=== PATIENT | male | born 1975 | race Caucasian/White ===

== ENCOUNTER 2020-02-09 09:40 | Outpatient (CLI) | payer OTHER ==
--- NOTE | 2020-02-09 10:08 | XRAY Report ---
PROCEDURE: Abdomen 1 View X-Ray INDICATIONS: ABD PAIN TECHNIQUE: 1 view of the abdomen were acquired. COMPARISON: None. FINDINGS: Surgical changes and devices: None. Bowel: No pneumoperitoneum. The bowel gas pattern is normal. Soft tissues: No masses; visualized solid organ contours appear normal in size. No suspicious abdom inal calcifications. A round calcification in the left pelvis is most likely a phlebolith. Bones: Small ossification adjacent to the right acetabulum may be related to prior trauma or degenera tive changes. IMPRESSION: No definite renal or ureteral calculus is seen radiographically. No signs of bowel obstr uction. Reviewed by: Gigi Vidal MD on 02/09/2020 10:06 AM PDT Approved by: Gigi Vidal MD on 02/09/2020 10:06 AM PDT Station ID: [id number]
== END 2020-02-09 09:41 | disposition home or self-care (01) ==
LOC: DI.S 09:40
PROVIDERS: ATTEND Physician Assistant Medical
DX: R10.9 Unspecified abdominal pain (principal); R31.9 Hematuria, unspecified
CPT/HCPCS: 36415; 74018; 80053; 84550; 85025; 87086

== ENCOUNTER 2021-03-24 | Observation (INO) | payer OTHER ==
--- NOTE | 2021-03-24 00:20 | ED Physician Documentation ---
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 No: Fever, Hematemesis, Constipation, Chest pain Similar symptoms before: Has not had sx before Recently seen: Not recently seen Review of Systems Constitutional: reports: Reviewed and negative Cardiac: reports: Reviewed and negative Respiratory: reports: Reviewed and negative GI: reports: Abdominal Pain, Nausea, Vomiting, Diarrhea. denies: Abdominal Swelling, Constipation, Hematemesis, Bloody / black stool : denies: Dysuria, Frequency, Hematuria Musculoskeletal: reports: Reviewed and negative Neurologic: reports: Reviewed and negative PD PAST MEDICAL HISTORY - Past Medical History Past Medical History: No - Past Surgical History Past Surgical History: No - Present Medications Home Medications: Ambulatory Orders Medication Instructions Recorded Confirmed No Known Home Medications 03/24/21 03/24/21 - Allergies Allergies/Adverse Reactions: Allergies Allergy/AdvReac Type Severity Reaction Status Date / Time No Known Drug Allergies Allergy Verified 03/24/21 00:06 - Living Situation Living Arrangement: reports: At home PD ED PE NORMAL - Vitals Vital signs reviewed: Yes - General General: Alert and oriented X 3, Well developed/nourished, Other (appears to be in mild painful distress that waxes and wanes during H+P) - HEENT HEENT: Moist mucous membranes - Cardiac Cardiac: RRR, No murmur - Respiratory Respiratory: No respiratory distress, Clear bilaterally - Abdomen Abdomen: Normal bowel sounds, Soft, Non distended, Other (mild-moderate tenderness diffusely but predominantly across lower abdomen without rebound) - Derm Derm: Normal color, Warm and dry Results - Vitals Vitals: Vital Signs - 24 hr 03/24/21 03/24/21 03/24/21 00:06 02:11 02:41 Temperature 36.5 C 36.8 C 36.4 C L Heart Rate 83 75 90 Respiratory 16 18 18 Rate Blood Pressure 141/90 H 142/83 H 135/92 H O2 Saturation 98 99 98 03/24/21 03/24/21 03/24/21 03:24 03:48 05:00 Temperature Heart Rate 73 74 80 Respiratory 18 17 17 Rate Blood Pressure 161/92 H 152/96 H 163/98 H O2 Saturation 98 99 03/24/21 03/24/21 06:19 08:49 Temperature Heart Rate 86 Respiratory 16 Rate Blood Pressure 154/88 H 138/83 H O2 Saturation 96 98 Oxygen O2 Source Room air - Labs Labs: Laboratory Tests 03/24/21 03/24/21 03/24/21 00:11 00:22 00:22 WBC 12.8 H RBC 5.53 Hgb 16.6 Hct 48.0 MCV 86.8 MCH 30.0 MCHC 34.6 RDW 12.1 Plt Count 330 MPV 9.5 Neut # (Auto) 10.0 H Lymph # (Auto) 1.6 [place] # (Auto) 0.6 Eos # (Auto) 0.7 Baso # (Auto) 0.0 Absolute Nucleated RBC 0.00 Nucleated RBC % 0.0 Sodium 139 Potassium 4.0 Chloride 101 Carbon Dioxide 24 Anion Gap 14.0 H BUN 12 Creatinine 0.9 Estimated GFR (MDRD) 92 Glucose 114 H Calcium 9.8 Total Bilirubin 0.5 AST 17 ALT 22 Alkaline Phosphatase 64 Total Protein 9.1 H Albumin 5.3 Globulin 3.8 Albumin/Globulin Ratio 1.4 Lipase 26 Urine Color YELLOW Urine Clarity CLEAR Urine pH 8.0 H Ur Specific [place] 1.015 Urine Protein NEGATIVE Urine Glucose (UA) NEGATIVE Urine Ketones 15 H Urine Occult Blood NEGATIVE Urine Nitrite NEGATIVE Urine Bilirubin NEGATIVE Urine Urobilinogen 0.2 (NORMAL) Ur Leukocyte Esterase NEGATIVE Ur Microscopic Review NOT INDICATED Urine Culture Comments NOT INDICATED Nasal Adenovirus (PCR) Nasal B. parapertussis DNA (PCR) Nasal Coronavir 229E PCR Nasal Coronavir HKU1 PCR Nasal Coronavir NL63 PCR Nasal Coronavir OC43 PCR Nasal Enterovir/Rhinovir PCR Nasal Influenza B PCR Nasal Influenza A PCR Nasal Parainfluen 1 PCR Nasal Parainfluen 2 PCR Nasal Parainfluen 3 PCR Nasal Parainfluen 4 PCR Nasal RSV (PCR) Nasal B.pertussis DNA PCR Nasal C.pneumoniae (PCR) Eloy Human Metapneumo PCR Nasal M.pneumoniae (PCR) Nasal SARS-CoV-2 (PCR) Gastric Fluid pH Gastric Occult Blood 03/24/21 03/24/21 03:00 03:01 WBC RBC Hgb Hct MCV MCH MCHC RDW Plt Count MPV Neut # (Auto) Lymph # (Auto) [place] # (Auto) Eos # (Auto) Baso # (Auto) Absolute Nucleated RBC Nucleated RBC % Sodium Potassium Chloride Carbon Dioxide Anion Gap BUN Creatinine Estimated GFR (MDRD) Glucose Calcium Total Bilirubin AST ALT Alkaline Phosphatase Total Protein Albumin Globulin Albumin/Globulin Ratio Lipase Urine Color Urine Clarity Urine pH Ur Specific [place] Urine Protein Urine Glucose (UA) Urine Ketones Urine Occult Blood Urine Nitrite Urine Bilirubin Urine Urobilinogen Ur Leukocyte Esterase Ur Microscopic Review Urine Culture Comments Nasal Adenovirus (PCR) NOT DETECTED Nasal B. parapertussis DNA (PCR) NOT DETECTED Nasal Coronavir 229E PCR NOT DETECTED Nasal Coronavir HKU1 PCR NOT DETECTED Nasal Coronavir NL63 PCR NOT DETECTED Nasal Coronavir OC43 PCR NOT DETECTED Nasal Enterovir/Rhinovir PCR NOT DETECTED Nasal Influenza B PCR NOT DETECTED Nasal Influenza A PCR NOT DETECTED Nasal Parainfluen 1 PCR NOT DETECTED Nasal Parainfluen 2 PCR NOT DETECTED Nasal Parainfluen 3 PCR NOT DETECTED Nasal Parainfluen 4 PCR NOT DETECTED Nasal RSV (PCR) NOT DETECTED Nasal B.pertussis DNA PCR NOT DETECTED Nasal C.pneumoniae (PCR) NOT DETECTED Eloy Human Metapneumo PCR NOT DETECTED Nasal M.pneumoniae (PCR) NOT DETECTED Nasal SARS-CoV-2 (PCR) NOT DETECTED Gastric Fluid pH 6.0 Gastric Occult Blood POSITIVE - Rads (name of study) CT A/P with IV contrast Radiology: Prelim report reviewed, See rad report PD MEDICAL DECISION MAKING - ED course Complexity details: reviewed results, re-evaluated patient, considered differential, d/w patient ED course: no concerning findings on blood tests; mild leukocytosis (WBC 12.8). CT A/P demonstrates "fluid distention of the small bowel with wall enhancement may reflect ileus or enteritis. no distal transition" (per radiologist's reading). He had recurrent nausea and vomiting despite zofran 4mg x two doses followed by 25mg IV phenergan. His pain also was recurrent, responding to IV morphine 4mg doses but requiring repeated dosing. Due to his ongoing symptoms despite three doses of antinauseants along with IV flluids and morphine, NGT placed. There was small output into NGT although he had copious vomiting during the insertion of the NGT. Even with the NGT, he continued to have recurrence of these symptoms. He was held in ED for several hours due to lack of bed availability. At end of my shift I discussed the case with Dr. Machado (hospitalist at [facility]) who will contact ED when bed becomes available (anticipate discharges later this morning). Departure - Departure Disposition: ED Place in Observation Clinical Impression: Enteritis Condition: Stable
[2021-03-24 00:25] LABS: BILIRUBIN,URINE NEGATIVE (NEGATIVE); GLUCOSE, URINE (UA) NEGATIVE (NEGATIVE); KETONES,URINE (UA) 15 mg/dL (NEGATIVE); LEUKOCYTE ESTERASE, URINE NEGATIVE (NEGATIVE); NITRITE,URINE NEGATIVE (NEGATIVE); OCCULT BLOOD,URINE NEGATIVE (NEGATIVE); PROTEIN,URINE NEGATIVE (NEGATIVE); UROBILINOGEN,URINE 0.2 (NORMAL) E.U./dL (NORMAL)
[2021-03-24 00:26] LABS: CLARITY,URINE CLEAR (CLEAR)
[2021-03-24 00:27] LABS: BASOPHILS % (AUTO) 0.2 %; EOSINOPHILS # (AUTO) 0.7 10^3/uL (0.0-0.7); EOSINOPHILS % (AUTO) 5.1 %; HGB - HEMOGLOBIN 16.6 g/dL (14.0-18.0); LYMPHOCYTES # (AUTO) 1.6 10^3/uL (1.5-3.5); LYMPHOCYTES % (AUTO) 12.1 %; MEAN CORPUSCULAR HGB CONC 34.6 g/dL (32.0-36.0); MEAN CORPUSCULAR VOLUME 86.8 fL (80.0-94.0); MEAN PLATELET VOLUME 9.5 fL (7.4-11.4); MONOCYTES # (AUTO) 0.6 10^3/uL (0.0-1.0); MONOCYTES % (AUTO) 4.8 %; NEUTROPHILS % (AUTO) 77.6 %; PLT - PLATELET COUNT 330 10^3/uL (130-450); RED BLOOD COUNT 5.53 10^6/uL (4.70-6.10); RED CELL DISTRIBUTION WIDTH 12.1 % (12.0-15.0); WHITE BLOOD COUNT 12.8 x10^3/uL (4.8-10.8)
[2021-03-24] MEDS ORDERED: SODIUM CHLORIDE 0.9% 1,000 ML IV STA ×2 (00:43→02:42)
[2021-03-24] MEDS ORDERED: ONDANSETRON 4 MG/2 ML VIAL IVP STA ×2 (00:43→07:14)
[2021-03-24] MEDS ORDERED: MORPHINE 2 MG/ML CARPUJECT IVP STA ×3 (00:43→07:17)
[2021-03-24 00:46] LABS: ALBUMIN 5.3 g/dL (3.2-5.5); ALBUMIN/GLOBULIN RATIO 1.4 (1.0-2.2); BILIRUBIN,TOTAL 0.5 mg/dL (0.2-1.0); CALCIUM 9.8 mg/dL (8.5-10.3); CREATININE 0.9 mg/dL (0.6-1.2); TOTAL PROTEIN 9.1 g/dL (6.7-8.2)
[2021-03-24] MEDS ORDERED: IOVERSOL 320 100 ML VIAL IVP ONE ×2 (01:38→01:55)
--- NOTE | 2021-03-24 02:09 | CT Report ---
PROCEDURE: CT abdomen and pelvis with contrast INDICATIONS: abdominal pain CONTRAST: IV CONTRAST: Optiray 320 ml: 100 PO CONTRAST: *NO PO CONTRAST TECHNIQUE: After the administration of intravenous contrast, 5 mm thick sections acquired from the diaphragms to the symphysis. 5 mm thick coronal and sagittal reformats were acquired. For radiation dose reducti on, the following was used: automated exposure control, adjustment of mA and/or kV according to shaji ent size. COMPARISON: None. FINDINGS: Image quality: Excellent. ABDOMEN: Lung bases: Lung bases are clear. Heart size is normal. Solid organs: Liver and spleen are normal in size and enhancement. Gallbladder unremarkable. Bilia ry system is non dilated. Pancreas enhances normally. No adrenal nodules. Kidneys demonstrate norm al size and enhancement, without hydronephrosis. Small right renal cyst Peritoneum and bowel: There is a fluid distention of the stomach and small bowel with wall enhancemen t present. Small bowel measures up to 3 cm in diameter. No transition present. No free air free fluid . No evidence of diverticulosis or diverticulitis. Nodes and vessels: No retroperitoneal or mesenteric adenopathy by size criteria. Aorta and inferior vena cava are normal in size. Miscellaneous: No ventral hernias. PELVIS: Genitourinary: Bladder wall thickness is normal. Miscellaneous: No inguinal hernias or adenopathy. Bones: No suspicious bony lesions. No vertebral body compression fractures. IMPRESSION: 1. No evidence of diverticulitis or obstructive uropathy. 2. Fluid distention of the small bowel with wall enhancement may reflect ileus or enteritis. No dista l transition. Consider short-term interval follow-up to exclude developing obstruction. Reviewed by: Kunal Magana MD on 03/24/2021 2:07 AM PST Approved by: Kunal Magana MD on 03/24/2021 2:07 AM PST Station ID: [id number]
[2021-03-24] MEDS ORDERED: PROMETHAZINE INJ 25 MG in SODIUM CHLORIDE 0.9% 50 ML IV STA (02:40)
[2021-03-24] MEDS ORDERED: PROMETHAZINE 25 MG/1 ML VIAL ONE (02:49)
[2021-03-24 03:19] LABS: GASTROCCULT POSITIVE (Negative)
[2021-03-24 04:03] LABS: B. PARAPERTUSSIS- RESP PCR PAN NOT DETECTED; B. PERTUSSIS- RESP PCR PANEL NOT DETECTED; C. PNEUMONIAE- RESP PCR PANEL NOT DETECTED; CORONAVIRUS 229E-RESP PCR NOT DETECTED; CORONAVIRUS HKU1-RESP PCR NOT DETECTED; CORONAVIRUS NL63-RESP PCR NOT DETECTED; CORONAVIRUS OC43-RESP PCR NOT DETECTED; HUMAN METAPNEUMOVIRUS NOT DETECTED; INFLUENZA A- RESP PCR PANEL NOT DETECTED; INFLUENZA B - RESP PCR PANEL NOT DETECTED; M. PNEUMONIAE- RESP PCR PANEL NOT DETECTED; PARAINFLUENZA VIRUS 1 NOT DETECTED; PARAINFLUENZA VIRUS 2 NOT DETECTED; PARAINFLUENZA VIRUS 3 NOT DETECTED; PARAINFLUENZA VIRUS 4 NOT DETECTED; RHINOVIRUS/ENTEROVIRUS NOT DETECTED; RSV- RESP PCR PANEL NOT DETECTED; SARS-CoV-2 -RESP PCR PANEL NOT DETECTED
[2021-03-24] MEDS ORDERED: METOCLOPRAMIDE 10 MG/2 ML VIAL IVP STA (05:12)
--- NOTE | 2021-03-24 08:11 | XRAY Report ---
PROCEDURE: Chest 1 View X-Ray INDICATIONS: NGT placement TECHNIQUE: One view of the chest was acquired. COMPARISON: None. FINDINGS: SUPPORT DEVICES: An enteric tube extends below the left hemidiaphragm with tip projecting in the left upper quadrant. LUNGS/PLEURA: No focal consolidation, pleural effusion or space-occupying pneumothorax. MEDIASTINUM: The cardiomediastinal silhouette is within normal limits. BONES/SOFT TISSUES: No acute abnormality. IMPRESSION: 1.No acute cardiopulmonary abnormality. Reviewed by: Art Burrell MD on 03/24/2021 8:10 AM [facility] Approved by: Art Burrell MD on 03/24/2021 8:10 AM [facility] Station ID: [id number]
[2021-03-24] MEDS ORDERED: ACETAMINOPHEN 325 MG TABLET PO PRN (10:52)
[2021-03-24] MEDS ORDERED: PROCHLORPERAZINE 10 MG/2 ML VIAL IVP PRN (10:52)
[2021-03-24] MEDS ORDERED: oxyCODONE 5 MG TABLET PO PRN (10:52)
[2021-03-24] MEDS ORDERED: MORPHINE 2 MG/ML CARPUJECT IVP PRN (10:52)
[2021-03-24] MEDS ORDERED: ONDANSETRON 4 MG/2 ML VIAL IVP PRN (10:52)
[2021-03-24] MEDS ORDERED: SODIUM CHLORIDE FLUSH 0.9% 10 ML SYRINGE IVP PRN (10:52)
--- NOTE | 2021-03-24 10:59 | HISTORY & PHYSICAL EXAMINATION ---
Chief Complaint - Chief Complaint Chief Complaint: abdominal pain, nausea and vomiting History of Present Illness - Admitted From Admitted From:: medical floor - History Obtained From Records Reviewed: [facility], ER notes History obtained from: Pt and ER notes Exam Limitations: no - History of Present Illness HPI Comment/Other: This is a 46 years old male, Otherwise healthy, Who present to ER complain of Abdominal pain, nausea and vomiting. Patient report after he ate Thanksgiving dinner on last night, he developed nausea and vomiting, and diffuse abdominal abdominal pain. He believe his Thanksgiving dinner was well cooked. In ER, his nausea and vomiting were difficult to control. Per ER reported, pt was given three times of antiEmesis and pain medication, but patient continued to have nausea and vomiting, and abdominal pain. Pt had NG tube done at ER. Patient also report he had 3 time diarrhea on plate straightener at the ER. Diarrhea was watery and yellow color. He denies fever, chill, chest pain, hematemesis, shortness of breath. In medical floor, pt feel better, he denies abdominal pain any more, and his nausea and vomiting are controlled as well. CT of abdomen and pelvis showed Fluid distention of the small bowel with wall enhancement may reflect ileus or enteritis. No distal transition. consider short-term interval followup with to exclude developing obstruction. Discussed the care goal with pt, he hope to have full code. History - Past Medical History GI: reports: Chronic diarrhea MRSA Hx?: No - Past Surgical History Neuro: reports: Other - Family & Social History Family History: Mother: Alive and Well, Father: Alive and Well Family History Comment/Other: Patient reported her father is age 72, he had medical history of colon cancer and prostate cancer. His mother is age 76 and had a medical history of IBS Living arrangement: At home Social History Notes: Patient denies history of cigarette smoking, alcohol problem or drug problem Meds/Allgy - Home Medications Home Medications: Ambulatory Orders Medication Instructions Recorded Confirmed No Known Home Medications 03/24/21 03/24/21 - Allergies Allergies/Adverse Reactions: Allergies Allergy/AdvReac Type Severity Reaction Status Date / Time No Known Drug Allergies Allergy Verified 03/24/21 00:06 Review of Systems - Constitutional Constitutional: denies: Fever, Chills, Poor appetite, Diaphoresis, Night sweats - Eyes Eyes: denies: Pain - Ears, Nose & Throat Ears, Nose & Throat: denies: Ear pain, Nosebleeds - Cardiovascular Cariovascular: denies: Palpitations, Chest pain, Exertional dyspnea, Decr. exercise tolerance - Respiratory Respiratory: denies: Cough, Wheezing, SOB at rest, SOB with exertion - Gastrointestinal Gastrointestinal: reports: Abdominal pain, Diarrhea, Nausea, Vomiting. denies: [place] blood emesis, Coffee grounds emesis - Musculoskeletal Musculoskeletal: denies: Muscle pain - Neurological Neurological: denies: Focal weakness, Headache, Numbness, Abnormal gait, Seizures, Incoordination, Slurred speech Exam - Vital Signs Vital Signs: Vital Signs x48h Temp Pulse Resp BP Pulse Ox 03/24/21 10:00 36.5 C 86 16 132/74 H 97 03/24/21 08:49 86 16 138/83 H 98 03/24/21 06:19 154/88 H 96 03/24/21 05:00 80 17 163/98 H 03/24/21 03:48 74 17 152/96 H 99 03/24/21 03:24 73 18 161/92 H 98 - Physical Exam General Appearance: positive: No acute distress, Alert. negative: Lethargic Eyes Bilateral: positive: Normal inspection, PERRL, No lid inflammation ENT: positive: ENT inspection nml, No signs of dehydration. negative: Purulent nasal drainage Neck: positive: Nml inspection, Trachea midline. negative: Tracheal deviation Respiratory: positive: Chest non-tender, No respiratory distress, Breath sounds nml. negative: Wheezes Cardiovascular: positive: Regular rate & rhythm, No murmur. negative: Tachycardia, Bradycardia, Systolic murmur Peripheral Pulses: positive: 2+ Abdomen: positive: Non-tender, Nml bowel sounds, No distention, Other (Whole abdomen is soft, and the patient had normal active bowel sounds at whole qradrant.). negative: Tenderness Back: positive: Nml inspection Skin: positive: Color nml, Warm, Dry. negative: Cyanosis Extremities: positive: Non-tender, Full ROM, Nml appearance, No pedal edema Neurologic/Psychiatric: positive: Oriented x3, Motor nml, Sensation nml, Mood/affect nml. negative: Weakness, Sensory loss, Facial droop, Slurred/abnml speech, Depressed mood/affect Sepsis Event Note (H) - Evaluation Current Stage of Sepsis: Ruled out Conclusion/Plan - Problem List (1) Enteritis Conclusion/Plan: Patient clinic present nausea, vomiting, abdominal pain, diarrhea. Now clinic pt is improving. CT of abdomen reveals pt may reflect enteritis or ileus. It is likely pt has virus enteritis. Pt already had NG tube on ER, we will continue until his vomiting is controlled, bowel rest and start with clear diet to see pt can tolerated then advance his diet as tolerated. IVF, and antiemesis PRN. (2) Nausea & vomiting Conclusion/Plan: pt present nausea and vomiting at ER, but pt has no more nausea or vomiting at medical floor now. It is likely caused by virus enteritis. IVF and antiemesis PRN, bowel rest with clear diet now. lab and vital monitor. (3) Diarrhea Conclusion/Plan: pt report he had three times watery diarrhea on plate straightener at ER, but now he has no more diarrhea, we will check C.Diff, continue IVF now. - Lab Results Fish Bones: 03/24/21 00:22 03/24/21 00:22 Core Measures - Anticipated LOS I expect patient to be DC'd or transferred within 96 hours.: Yes - DVT/VTE - Prophylaxis VTE/DVT Device ordered at admit?: Yes VTE/DVT Prophylaxis med ordered at admit?: Yes
[2021-03-24 12:26] LABS: MUDS CUTOFF CONCENTRATIONS CUTOFF CONC BELOW:
[2021-03-24 12:52] LABS: AMPHETAMINE SCREEN,URINE NEGATIVE (NEGATIVE); BARBITURATE SCREEN,UR NEGATIVE (NEGATIVE); BENZODIAZEPINES SCREEN, URINE NEGATIVE (NEGATIVE); COCAINE SCREEN URINE NEGATIVE (NEGATIVE); METHADONE SCREEN, URINE NEGATIVE (NEGATIVE); METHAMPHETAMINES SCREEN, URINE NEGATIVE (NEGATIVE); OPIATE SCREEN, URINE POSITIVE (NEGATIVE); OXYCODONE SCREEN, URINE NEGATIVE (NEGATIVE); PROPOXYPHENE SCREEN, URINE NEGATIVE (NEGATIVE); THC CANNABINOID SCREEN, URINE NEGATIVE (NEGATIVE); TRICYCLIC ANTIDEPRESSANT,URINE NEGATIVE (NEGATIVE)
[2021-03-24] MEDS: SODIUM CHLORIDE FLUSH 0.9% 10 ML SYRINGE IVP SCH (17:26)
[2021-03-24] MEDS: VANCOMYCIN 125 MG CAPSULE PO SCH ×2 (19:06→20:58)
[2021-03-24] MEDS: SODIUM CHLORIDE 0.9% 1,000 ML IV SCH (21:00)
[2021-03-25] MEDS: SODIUM CHLORIDE FLUSH 0.9% 10 ML SYRINGE IVP SCH ×2 (04:18→10:35)
[2021-03-25 06:29] LABS: BASOPHILS % (AUTO) 0.3 %; EOSINOPHILS # (AUTO) 0.7 10^3/uL (0.0-0.7); EOSINOPHILS % (AUTO) 9.6 %; HCT - HEMATOCRIT 37.8 % (42.0-52.0); HGB - HEMOGLOBIN 12.8 g/dL (14.0-18.0); LYMPHOCYTES # (AUTO) 2.5 10^3/uL (1.5-3.5); LYMPHOCYTES % (AUTO) 32.4 %; MEAN CORPUSCULAR HEMOGLOBIN 30.4 pg (27.0-31.0); MEAN CORPUSCULAR HGB CONC 33.9 g/dL (32.0-36.0); MEAN CORPUSCULAR VOLUME 89.8 fL (80.0-94.0); MONOCYTES # (AUTO) 0.6 10^3/uL (0.0-1.0); MONOCYTES % (AUTO) 8.2 %; NEUTROPHILS # (AUTO) 3.7 10^3/uL (1.5-6.6); NEUTROPHILS % (AUTO) 49.2 %; PLT - PLATELET COUNT 211 10^3/uL (130-450); RED BLOOD COUNT 4.21 10^6/uL (4.70-6.10); RED CELL DISTRIBUTION WIDTH 12.3 % (12.0-15.0); WHITE BLOOD COUNT 7.6 x10^3/uL (4.8-10.8)
[2021-03-25 06:36] LABS: CALCIUM 8.4 mg/dL (8.5-10.3); CREATININE 0.9 mg/dL (0.6-1.2); POTASSIUM 3.7 mmol/L (3.5-5.0)
[2021-03-25] MEDS: SODIUM CHLORIDE 0.9% 1,000 ML IV SCH (07:06)
[2021-03-25 08:21] VITALS: BP 111/69
[2021-03-25] MEDS ORDERED: ENOXAPARIN 40 MG/0.4 ML SYRINGE SUBQ SCH (09:00)
--- NOTE | 2021-03-25 09:06 | PROVIDER PROGRESS NOTE ---
Objective - Vital Signs/Intake & Output Vital Signs: Vital Signs x48h Temp Pulse Resp BP Pulse Ox 03/25/21 08:10 36.6 C 73 18 111/69 95 03/25/21 05:27 37 C 70 16 108/63 96 Intake & Output: Intake & Output 03/22/21 03/23/21 03/24/21 03/25/21 23:59 23:59 23:59 23:59 Intake Total 2147.667 1223.333 Output Total 2000 Balance 2257.667 1223.333 - Lab Results Fish Bones: 03/25/21 06:07 03/25/21 06:07 Other Labs: Lab Results x24hrs 03/25/21 03/25/21 03/24/21 Range/Units 06:07 06:07 15:59 WBC 7.6 (4.8-10.8) x10^3/uL RBC 4.21 L (4.70-6.10) 10^6/uL Hgb 12.8 L (14.0-18.0) g/dL Hct 37.8 L (42.0-52.0) % MCV 89.8 (80.0-94.0) fL MCH 30.4 (27.0-31.0) pg MCHC 33.9 (32.0-36.0) g/dL RDW 12.3 (12.0-15.0) % Plt Count 211 (130-450) 10^3/uL MPV 10.0 (7.4-11.4) fL Neut # (Auto) 3.7 (1.5-6.6) 10^3/uL Lymph # (Auto) 2.5 (1.5-3.5) 10^3/uL [place] # (Auto) 0.6 (0.0-1.0) 10^3/uL Eos # (Auto) 0.7 (0.0-0.7) 10^3/uL Baso # (Auto) 0.0 (0.0-0.1) 10^3/uL Absolute Nucleated RBC 0.00 x10^3/uL Nucleated RBC % 0.0 /100WBC Sodium 136 (135-145) mmol/L Potassium 3.7 (3.5-5.0) mmol/L Chloride 104 (101-111) mmol/L Carbon Dioxide 25 (21-32) mmol/L Anion Gap 7.0 (6-13) BUN 14 (6-20) mg/dL Creatinine 0.9 (0.6-1.2) mg/dL Estimated GFR (MDRD) 92 (>89) Glucose 121 H (70-100) mg/dL Calcium 8.4 L (8.5-10.3) mg/dL Stl C. diff Tox B Gene POSITIVE A* (NEGATIVE) Urine Opiates Screen (NEGATIVE) Ur Oxycodone Screen (NEGATIVE) Urine Methadone Screen (NEGATIVE) Ur Propoxyphene Screen (NEGATIVE) Ur Barbiturates Screen (NEGATIVE) Ur Tricyclics Screen (NEGATIVE) Ur Phencyclidine Scrn (NEGATIVE) Ur Amphetamine Screen (NEGATIVE) U Methamphetamines Scrn (NEGATIVE) U Benzodiazepines Scrn (NEGATIVE) Urine Cocaine Screen (NEGATIVE) U Cannabinoids Screen (NEGATIVE) 03/24/21 Range/Units 11:50 WBC (4.8-10.8) x10^3/uL RBC (4.70-6.10) 10^6/uL Hgb (14.0-18.0) g/dL Hct (42.0-52.0) % MCV (80.0-94.0) fL MCH (27.0-31.0) pg MCHC (32.0-36.0) g/dL RDW (12.0-15.0) % Plt Count (130-450) 10^3/uL MPV (7.4-11.4) fL Neut # (Auto) (1.5-6.6) 10^3/uL Lymph # (Auto) (1.5-3.5) 10^3/uL [place] # (Auto) (0.0-1.0) 10^3/uL Eos # (Auto) (0.0-0.7) 10^3/uL Baso # (Auto) (0.0-0.1) 10^3/uL Absolute Nucleated RBC x10^3/uL Nucleated RBC % /100WBC Sodium (135-145) mmol/L Potassium (3.5-5.0) mmol/L Chloride (101-111) mmol/L Carbon Dioxide (21-32) mmol/L Anion Gap (6-13) BUN (6-20) mg/dL Creatinine (0.6-1.2) mg/dL Estimated GFR (MDRD) (>89) Glucose (70-100) mg/dL Calcium (8.5-10.3) mg/dL Stl C. diff Tox B Gene (NEGATIVE) Urine Opiates Screen POSITIVE H (NEGATIVE) Ur Oxycodone Screen NEGATIVE (NEGATIVE) Urine Methadone Screen NEGATIVE (NEGATIVE) Ur Propoxyphene Screen NEGATIVE (NEGATIVE) Ur Barbiturates Screen NEGATIVE (NEGATIVE) Ur Tricyclics Screen NEGATIVE (NEGATIVE) Ur Phencyclidine Scrn NEGATIVE (NEGATIVE) Ur Amphetamine Screen NEGATIVE (NEGATIVE) U Methamphetamines Scrn NEGATIVE (NEGATIVE) U Benzodiazepines Scrn NEGATIVE (NEGATIVE) Urine Cocaine Screen NEGATIVE (NEGATIVE) U Cannabinoids Screen NEGATIVE (NEGATIVE) Sepsis Event Note (H) - Evaluation Current Stage of Sepsis: Ruled out
[2021-03-25] MEDS: VANCOMYCIN 125 MG CAPSULE PO SCH (09:26)
--- NOTE | 2021-03-25 10:24 | DISCHARGE SUMMARY ---
Discharge Summary Admit Date: 03/24/21 Discharge Date: 03/25/21 Discharging Provider: JEFF Wilhelm Code Status: Attempt Resuscitation Condition at Discharge: Stable Discharge Disposition: 01 Home, Self Care - DIAGNOSES Admission Diagnoses: (1) Enteritis (2) Nausea & vomiting (3) Diarrhea Discharge Diagnoses with Status of Each Condition: (1) Enteritis Improved/Stable. He presented with nausea, vomiting, abdominal pain, and diarrhea. This morning denies pain, nausea, or vomiting and notes he has not had a bowel movement since last night. CT revealed CDIFF and he was started on oral vancomycin. Diet was advanced to regular this morning and he tolerated eggs and toast without complaint. (2) Nausea & vomiting Resolved. He presented with nausea and vomiting and was placed on bowel rest initially. Tolerated clear liquids overnight and this morning and when diet was advanced to regular he tolerated eggs and toast without complaint. Has no further abdominal pain or concerns. (3) Diarrhea Stable. Admitted with reports of multiple episodes of diarrhea. This morning notes he has not had a bowel movement since last night. Started on oral vanco for treatment of CDIFF with almost immediate stabilization or resolution of symptoms. - HPI History of Present Illness: HPI per admit note 03/24 by [place] "This is a 46 years old male, Otherwise healthy, Who present to ER complain of Abdominal pain, nausea and vomiting. Patient report after he ate Thanksgiving dinner on last night, he developed nausea and vomiting, and diffuse abdominal abdominal pain. He believe his Thanksgiving dinner was well cooked. In ER, his nausea and vomiting were difficult to control. Per ER reported, pt was given three times of antiEmesis and pain medication, but patient continued to have nausea and vomiting, and abdominal pain. Pt had NG tube done at ER. Patient also report he had 3 time diarrhea on pier runner at the ER. Diarrhea was watery and yellow color. He denies fever, chill, chest pain, hematemesis, shortness of breath. In medical floor, pt feel better, he denies abdominal pain any more, and his nausea and vomiting are controlled as well. CT of abdomen and pelvis showed Fluid distention of the small bowel with wall enhancement may reflect ileus or enteritis. No distal transition. consider short-term interval followup with to exclude developing obstruction. Discussed the care goal with pt, he hope to have full code." - HOSPITAL COURSE Hospital Course: Pt admitted with abdominal pain, nausea, vomiting and diarrhea. An NG tube was p laced in the ED and removed last night. He was admitted for closer monitoring and he was found on CT to have CDIFF. Oral vanco was started and he was given 1L NS IVF. He was able to tolerate clear liquids this morning and was advanced to a regular diet, which he also tolerated. He was discharged home with family with instructions to complete a 10 day course of oral Vancomycin and with patient education regarding CDIFF. At time of discharge he denied abdominal pain, nausea, vomiting, and diarrhea. - ALLERGIES Allergies/Adverse Reactions: Allergies Allergy/AdvReac Type Severity Reaction Status Date / Time No Known Drug Allergies Allergy Verified 03/24/21 00:06 - MEDICATIONS Home Medications: Ambulatory Orders Medication Instructions Recorded Confirmed Vancomycin [Vancocin] 125 mg PO QID 10 Days #40 cap 03/25/21 - PHYSICAL EXAM AT DISCHARGE General Appearance: positive: No acute distress, Alert Eyes Bilateral: positive: Normal inspection, PERRL ENT: positive: ENT inspection nml, No signs of dehydration Neck: positive: Nml inspection Respiratory: positive: Chest non-tender, No respiratory distress, Breath sounds nml Cardiovascular: positive: Regular rate & rhythm, No murmur, No gallop Peripheral Pulses: positive: 2+ Abdomen: positive: Non-tender, No organomegaly, Nml bowel sounds, No distention Skin: positive: Color nml, No rash, Warm, Dry Extremities: positive: Non-tender, Full ROM, Nml appearance Neurologic/Psychiatric: positive: Oriented x3, CN's nml (2-12) - LABS Result Diagrams: 03/25/21 06:07 03/25/21 06:07 - DIAGNOSTIC IMAGING Diagnostic Imaging Results: Final report reviewed Diagnostic Imaging Results Comments: 03/24 CT: No evidence of diverticulitis or obstructive uropathy. Fluid distention of the small bowel with wall enhancement may reflect ileus or enter itis. no distal transition. 03/24 CXR: No acute cardiopulmonary abnormality. - SEPSIS Current Stage of Sepsis: Ruled out - TIME SPENT Time Spent in Discharge (Minutes): 31
--- NOTE | 2021-03-25 10:26 | Discharge Plan ---
Discharge Plan Problem Reviewed?: Yes Disposition: Home, Self Care Condition: Stable Prescriptions: Vancomycin [Vancocin] 125 mg PO QID 10 Days #40 cap Diet: Regular Activity Restrictions: Activity as Tolerated Instruction Topics: Vancomycin capsules, Clostridium Difficile Infec Health Concerns: You admitted with abdominal pain, nausea and vomiting. You were found to have CDIFF, an intestinal infection causing your pain and nausea. You have been able to tolerate a regular diet this morning, without pain or nausea. You were started on oral Vancomycin solution and will need to complete a ten day course of the medication. It is okay to continue with a normal diet, please stay hydrated and increase hydration at home should you have any further episodes of diarrhea. Plan of Treatment: Continue the oral Vancomycin solution 4 times a day until you have completed the course. Stay hydrated and increase hydration if you have any further episodes of diarrhea. You will need to make sure you wash your hands with soap and water frequently and wash surfaces in your kitchen and bathroom with bleach. Follow up with your Primary Care Provider if you complete the medication and continue to have symptoms (diarrhea, nausea, vomiting, and abdominal pain). Additional Instructions or Follow Up instructions: Follow up with your PCP if your symptoms return and persist despite antibiotic treatment. No Smoking: If you smoke, Please STOP! Call for help.
== END 2021-03-25 11:55 | disposition home or self-care (01) ==
LOC: ED → MS2 10:52
PROVIDERS: ADMIT Nurse Practitioner Gerontology; ATTEND Registered Nurse
DX: A04.72 Enterocolitis due to Clostridium difficile, not specified as recurrent (principal); Z20.822 Contact with and (suspected) exposure to COVID-19
CPT/HCPCS: 0202U; 36415; 43753; 71045; 74177; 80048; 80053; 80306; 81003; 83690; 85025; 87493; 96365; 96375; 96376; 99284; 99285; G0378; J2765; J7040; J8499; Q9967; 81001; 85014; 85018; 87086

== ENCOUNTER 2022-09-17 08:26 | Outpatient (CLI) | payer OTHER ==
[~2022-09-17 08:26] MED LIST: GADOBUTROL 10 MMOL/10 ML VIAL ONE
[2022-09-17] MEDS ORDERED: GADOBUTROL 10 MMOL/10 ML VIAL IVP ONE (19:03)
--- NOTE | 2022-09-20 21:37 | MRI Report ---
PROCEDURE: IAC'S W/WO INDICATIONS: SCHWANNOMATOSIS, SCHWANOMA RESECTION CONTRAST: gadavist 9.8ml TECHNIQUE: Noncontrast sagittal T1 spin echo, axial FLAIR, axial gradient echo, axial diffusion and ADC through the brain. Axial thin-slice 3D CISS, coronal balanced GE, axial T1 spin echo with fat saturation thr ough the internal auditory canals. After the administration of contrast, thin slice axial and johnson l T1 spin echo with fat saturation through the internal auditory canals, and axial T1 spin echo with fat saturation through the brain. COMPARISON: 11/30/2020, 12/23/2019, 11/25/2019. Correlation is also made with CT, 11/21/2019 This dictation was delayed, awaiting outside prior images, which have now arrived. FINDINGS: Image quality: Excellent. Cerebellopontine angles: There is been prior surgery in the left side. There is a mild degree of enhancement seen along the margins of the left internal auditory canal. The degree of enhancement is slightly improved compared to the outside 2020 MRI. No gerald recurrent mass es are seen. No masses or abnormal enhancement can be seen elsewhere within the internal auditory canals or within the cerebellopontine angle cisterns. CSF spaces: Ventricles are normal in size and shape. No extra-axial fluid collections. Basal ciste rns are patent. Brain: No intracranial bleeds or mass effects. Castano-white matter interface is intact. No abnormal intracranial enhancement. Diffusion weighted images demonstrate no acute ischemic insults. Brainste m appears normal. Normal intravascular flow voids are present. Skull and face: Calvarial marrow signal is normal. Orbits appear normal. Sinuses: Sinuses and mastoids are clear. IMPRESSION: Postoperative change can be seen, with prior left internal auditory canal resection. There is a mild degree of enhancement along the margins of the left internal auditory canal. The degr ee of enhancement is improved compared to the outside MRI. No recurrent masses are seen. No new masses are seen elsewhere. Reviewed by: Herb Castillo MD on 09/20/2022 8:35 PM [email or web address] Approved by: Herb Castillo MD on 09/20/2022 8:35 PM [facility] Station ID: [id number]
== END 2022-09-17 08:27 | disposition home or self-care (01) ==
LOC: DI 08:26
PROVIDERS: ATTEND Registered Nurse
DX: Q85.03 Schwannomatosis (principal)
CPT/HCPCS: 70486; 70553; A9585